=== PATIENT | male | born 1945 | race Caucasian/White ===

== ENCOUNTER → 2019-08-26 | Outpatient (CLI) | payer OTHER ==
[~2019-08-26] MED LIST: ABILIFY 5 MG TAB5 M1 PO; ASA81BEC; CARVEDILOL25 MG PO; COZAAR100 MG PO; FOSAMAX 70 MG T70 MG PO; LIPITOR40 MG PO; MINIPRESS2 MG PO; NITROSTAT0.4 M1 SUBLING; SERTRALINE HCL100 MG PO; TERAZOSIN HCL5 MG PO; TRIAMTERENE/HCT1 CA1 PO; VENTOLIN HFA INH8 GM
[2019-08-26 10:59] VITALS: BP 127/68
[2019-08-26 11:45] VITALS: BP 128/59
--- NOTE | 2019-08-26 12:11 | NUR ---
IN FOR THERAPEUTIC PHLEBOTOMY FOR HEMACHROMATOSIS. HGB 15.7. ADMISSION HISTORY AND ASSESSMENT COMPLETED. PATIENT VERY PLEASANT. THERAPEUTIC PHLEBOTOMY COMPLETED AFTER 2 STICKS. TOLERATED WELL. PATIENT REPORTED HE ATE A GOOD BREAKFAST. DRANK SOME APPLE JUICE AND WATER WHILE HERE. OBSERVED FOR 20 MINUTES AND THEN DISMISSED IN GOOD CONDITION. SCHEDULED TO RETURN IN 3 MONTHS.
== END ==
LOC: OPONC 08:14
DX: E83.119 Hemochromatosis, unspecified (principal); I25.10 Atherosclerotic heart disease of native coronary artery without angina pectoris
CPT/HCPCS: 95100

== ENCOUNTER → 2019-11-18 | Outpatient (CLI) | payer OTHER ==
[2019-11-18 10:30] VITALS: BP 122/57
[2019-11-18 10:57] LABS: HEMATOCRIT 44.5 % (42.0-52.0); HEMOGLOBIN 15.6 gm/dL (14.0-18.0); MCH 34.3 pg (26.0-34.0); MCHC 35.1 g/dL (28.0-37.0); MCV 97.5 fL (80.0-100.0); RBC 4.56 mil/uL (4.50-6.00); RDW 12.6 % (10.5-14.5)
[2019-11-18 12:25] VITALS: BP 127/58
--- NOTE | 2019-11-18 15:42 | NUR ---
VERY PLEASANT PATIENT IN FOR THERAPEUTIC PHLEBOTOMY. STATED FEELING WELL. CBC DRAWN. HGB 15.6, HCT 44.5. THERAPEUTIC PHLEBOTOMY DONE. PATIENT IS A VERY HARD STICK SO IV TEAM PLACED NEEDLE AFTER 2 ATTEMPTS BY THIS RN. PATIENT TOLERATED WELL. DRANK SOME ORANGE JUICE AND OBSERVED FOR 15 MINUTES. POST BP WNL. DISMISSED IN STABLE CONDITION.
== END ==
LOC: OPONC 08:41
PROVIDERS: ATTEND Family Medicine
DX: E83.119 Hemochromatosis, unspecified (principal)
CPT/HCPCS: 95100

== ENCOUNTER → 2019-12-30 | Outpatient (CLI) | payer OTHER ==
[2019-12-30 10:00] VITALS: BP 124/58
[2019-12-30 10:27] LABS: HEMATOCRIT 42.6 % (42.0-52.0); HEMOGLOBIN 14.5 gm/dL (14.0-18.0); MCH 32.8 pg (26.0-34.0); MCV 96.3 fL (80.0-100.0); RBC 4.43 mil/uL (4.50-6.00); RDW 12.1 % (10.5-14.5); WBC 7.6 thou/uL (4.0-11.0)
[2019-12-30 10:46] LABS: % SATURATION 35 % (20-39); IRON 83 ug/dL (65-175); TIBC 239 ug/dL (250-450)
[2019-12-30 11:35] VITALS: BP 115/50
--- NOTE | 2019-12-30 15:35 | NUR ---
IN FOR Q6WEEK THERAPEUTIC PHLEBOTOMY FOR HEMACHROMATOSIS. LABS DRAWN. HGB 14.5, FERRITIN 114. THERAPEUTIC PHLEBOTOMY DONE. REMOVED 1 UNIT. IV TEAM PLACED NEEDLE PATIENT HAS POOR PERIPHERAL VEINS. TOLERATED WELL. DRANK 8 OZ ORANGE JUICE. OBSERVED FOR 20 MINUTES.POST VITAL SIGNS GOOD. SCHEDULED TO RETURN FOR LAB DRAW AND RETURN IF NEEDS PHLEBOTOMY. DISMISSED IN GOOD CONDITION.
== END ==
LOC: OPONC 08:54
PROVIDERS: ATTEND Family Medicine
DX: E83.119 Hemochromatosis, unspecified (principal)
CPT/HCPCS: 95100

== ENCOUNTER → 2020-02-10 | Outpatient (CLI) | payer OTHER ==
[2020-02-10 09:17] LABS: HEMATOCRIT 41.4 % (42.0-52.0); HEMOGLOBIN 14.4 gm/dL (14.0-18.0); MCH 33.5 pg (26.0-34.0); MCHC 34.8 g/dL (28.0-37.0); MCV 96.3 fL (80.0-100.0); RBC 4.3 mil/uL (4.50-6.00); RDW 12.9 % (10.5-14.5); WBC 8.4 thou/uL (4.0-11.0)
[2020-02-10 13:30] LABS: % SATURATION 43 % (20-39); IRON 105 ug/dL (65-175); TIBC 247 ug/dL (250-450)
== END ==
LOC: OPONC 09:03
PROVIDERS: ATTEND Family Medicine
DX: E83.119 Hemochromatosis, unspecified (principal)

== ENCOUNTER → 2020-02-11 | Outpatient (CLI) | payer OTHER ==
[2020-02-11 09:00] VITALS: BP 119/56
[2020-02-11 09:30] VITALS: BP 113/48
--- NOTE | 2020-02-11 11:39 | NUR ---
IN FOR Q6 WEEK THERAPEUTIC PHLEBOTOMY. STATED FEELING WELL. SCALE CALIBRATED BY [employer]. IV TEAM PLACED A 14 G NEEDLE CONNECTED TO A PHLEBOTOMY BAG IN [facility]. REMOVED APPROXIMATELY 350 ML OR 10 OUNCES OF BLOOD. LINE CLOTTED OFF AND COULD ONLY GET 10 OUNCES. PATIENT TOLERATED WELL. PATIENT DRANK A LEMON [place] SODA AND OBSERVED FOR 20 MINUTES. POST BP STABLE. TO RETURN IN MARCH FOR NEXT TREATMENT. DISMISSED IN STABLE CONDITION.
== END ==
LOC: OPONC 08:56
PROVIDERS: ATTEND Family Medicine
DX: E83.119 Hemochromatosis, unspecified (principal)
CPT/HCPCS: 95100

== ENCOUNTER → 2020-04-05 | Outpatient (CLI) | payer OTHER ==
[2020-04-05 10:00] LABS: HEMATOCRIT 43.6 % (42.0-52.0); HEMOGLOBIN 14.9 gm/dL (14.0-18.0); MCH 33.2 pg (26.0-34.0); MCHC 34.1 g/dL (28.0-37.0); MCV 97.3 fL (80.0-100.0); RBC 4.48 mil/uL (4.50-6.00); RDW 12.9 % (10.5-14.5); WBC 7.1 thou/uL (4.0-11.0)
[2020-04-05 10:08] LABS: % SATURATION 45 % (20-39); IRON 115 ug/dL (65-175); TIBC 258 ug/dL (250-450)
== END ==
LOC: OPONC 08:52
PROVIDERS: ATTEND Family Medicine
DX: E83.119 Hemochromatosis, unspecified (principal)

== ENCOUNTER → 2020-04-06 | Outpatient (CLI) | payer OTHER ==
[2020-04-06 09:03] VITALS: BP 119/72
[2020-04-06 09:20] VITALS: BP 124/58
--- NOTE | 2020-04-06 10:41 | NUR ---
IN FOR Q6WEEK THERAPEUTIC PHLEBOTOMY FOR HEMOCHROMATOSIS. STATED FEELING WELL. DENIED NAUSEA, FEVER/CHILLS, INCREASED SOB (HAS CHRONIC ASTHMA SYMPTOMS). IV TEAM PLACED THERAPEUTIC PHLEBOTOMY NEEDLE IN LAC USING ULTRASOUND. REMOVED 500 ML BLOOD PER MEASUREMENT ON BAG. TOLERATED WELL. DRANK SOME SODA AND OBSERVED FOR 15 MINUTES. POST BP GOOD. SCHEDULED TO RETURN IN 6 WEEKS. DISMISSED IN GOOD CONDITION.
== END ==
LOC: OPONC 09:45
PROVIDERS: ATTEND Family Medicine
DX: E83.119 Hemochromatosis, unspecified (principal)
CPT/HCPCS: 95100

== ENCOUNTER → 2020-05-17 | Outpatient (CLI) | payer OTHER ==
[2020-05-17 08:45] VITALS: BP 130/55
[2020-05-17 09:15] LABS: HEMATOCRIT 46.4 % (42.0-52.0); HEMOGLOBIN 15.7 gm/dL (14.0-18.0); MCH 32.8 pg (26.0-34.0); MCHC 33.9 g/dL (28.0-37.0); MCV 96.7 fL (80.0-100.0); RBC 4.8 mil/uL (4.50-6.00); RDW 12.5 % (10.5-14.5); WBC 10.4 thou/uL (4.0-11.0)
[2020-05-17 09:25] LABS: % SATURATION 45 % (20-39); IRON 111 ug/dL (65-175); TIBC 248 ug/dL (250-450)
[2020-05-17 09:30] VITALS: BP 118/59
--- NOTE | 2020-05-17 10:00 | NUR ---
PT HERE FOR Q6WK THERAPEUTIC PHLEBOTOMY FOR HEMACHROMATOSIS. PRE-PHLEBOTOMY LABS DRAWN. PT MET CRITERIA FOR PHLEBOTOMY WITH HGB 15.7 AND FERRITIN 123. WITH UNLTRASOUND, VASCULAR ACCESS NURSE, ANGY, ACCESSED PT'S VEIN IN RT AC WITHOUT DIFFICULTY AND REMAINED WITH PATIENT THROUGHOUT. ONE FULL UNIT OBTAINED, 520GM IN WEIGHT. CALIBRATED, ZEROED SCALE USED TO DETERMINE WEIGHT. PT TOLERATED WELL, NO DIZZINESS, NAUSEA OR OTHER COMPLAINTS. VSS. HEMOSTASIS OBTAINED. PT GIVEN SODA TO DRINK POST PROCEDURE. DISMISSED 30 MIN POST IN STABLE CONDITION. REMINDED TO DRINK PLENTY OF FLUIDS FOR NEXT 24 HOURS. SCHEDULED TO RETURN IN 6 WEEKS.
== END ==
LOC: OPONC 08:35
PROVIDERS: ATTEND Family Medicine
DX: E83.119 Hemochromatosis, unspecified (principal)
CPT/HCPCS: 95100

== ENCOUNTER → 2020-06-29 | Outpatient (CLI) | payer OTHER ==
[2020-06-29 10:03] LABS: HEMATOCRIT 43.6 % (42.0-52.0); HEMOGLOBIN 14.8 gm/dL (14.0-18.0); MCH 32.7 pg (26.0-34.0); MCHC 33.9 g/dL (28.0-37.0); MCV 96.6 fL (80.0-100.0); RBC 4.51 mil/uL (4.50-6.00); RDW 12.2 % (10.5-14.5); WBC 9.4 thou/uL (4.0-11.0)
[2020-06-29 10:15] LABS: % SATURATION 30 % (20-39); IRON 76 ug/dL (65-175); TIBC 250 ug/dL (250-450)
[2020-06-29 10:24] VITALS: BP 137/60
[2020-06-29 11:35] VITALS: BP 136/59
--- NOTE | 2020-06-29 12:47 | NUR ---
IN FOR Q6WEEK THERAPEUTIC PHLEBOTOMY FOR HEMOCHROMATOSIS. PATIENT STATED FEELING WELL. HGB 14.8, FERRITIN 84. CALLED DR. SMITH TO SEE IF PHLEBOTOMY NEEDED TO BE DONE. STATED GO AHEAD ORDERED AND DO THERAPEUTIC PHLEBOTOMY. IV TEAM ANGY PLACED NEEDLE IN LAC AND 525 GM/1 UNIT BLOOD REMOVED WITHOUT DIFFICULTY. PATIENT DRANK SOME [place] AND OBSERVED FOR 20 MINUTES. POST BLOOD PRESSURE GOOD. PATIENT DENIED DIZZINESS AND WEAKNESS. DISMISSED IN GOOD CONDITION. SCHEDULED TO RETURN ON AUGUST 10.
== END ==
LOC: OPONC 06-28 10:17
PROVIDERS: ATTEND Family Medicine
DX: E83.119 Hemochromatosis, unspecified (principal)
CPT/HCPCS: 95100

== ENCOUNTER → 2020-08-10 | Outpatient (CLI) | payer OTHER ==
[~2020-08-10] MED LIST changes: +ABILIFY 5 MG TAB5 MG PO; +ASA81BEC PO; +COZAAR 25 MG TA25 M2 PO; +VENTOLIN HFA INH8 GM INH
[2020-08-10 08:44] LABS: HEMOGLOBIN 14.9 gm/dL (14.0-18.0); MCH 33.1 pg (26.0-34.0); MCHC 34.7 g/dL (28.0-37.0); MCV 95.4 fL (80.0-100.0); RBC 4.5 mil/uL (4.50-6.00); RDW 12.6 % (10.5-14.5); WBC 8.1 thou/uL (4.0-11.0)
[2020-08-10 08:45] VITALS: BP 118/50
[2020-08-10 09:00] LABS: % SATURATION 26 % (20-39); IRON 75 ug/dL (65-175); TIBC 290 ug/dL (250-450)
--- NOTE | 2020-08-10 11:26 | NUR ---
IN FOR Q6WEEK LAB AND THERAPEUTIC PHLEBOTOMY. PER STANDING ORDER TO DO THERAPEUTIC PHLEBOTOMY IF HGB>11 AND FERRITIN>100. HGB 14.6/FERRITIN 76. CALLED DR. SMITH THESE LAB RESULTS. RECEIVED ORDER TO HOLD THERAPEUTIC PHLEBOTOMY TODAY AND HAVE PATIENT COME BACK IN 6 WEEKS PER STANDING ORDER. SCHEDULED TO RETURN SEPTEMBER 21. DISMISSED IN STABLE CONDITION.
== END ==
LOC: OPONC 09:01
PROVIDERS: ATTEND Family Medicine
DX: E83.119 Hemochromatosis, unspecified (principal)
CPT/HCPCS: 91018

== ENCOUNTER → 2020-09-21 | Outpatient (CLI) | payer OTHER ==
[2020-09-21 09:25] VITALS: BP 133/53
[2020-09-21 09:26] LABS: HEMATOCRIT 42.8 % (42.0-52.0); HEMOGLOBIN 14.7 gm/dL (14.0-18.0); MCH 32.7 pg (26.0-34.0); MCHC 34.3 g/dL (28.0-37.0); MCV 95.1 fL (80.0-100.0); RBC 4.49 mil/uL (4.50-6.00); RDW 12.6 % (10.5-14.5); WBC 8.6 thou/uL (4.0-11.0)
[2020-09-21 10:09] LABS: % SATURATION 46 % (20-39); IRON 97 ug/dL (65-175); TIBC 213 ug/dL (250-450)
[2020-09-21 10:45] VITALS: BP 128/59
--- NOTE | 2020-09-21 10:55 | NUR ---
HERE FOR Q6W THERAPEUTIC PHLEBOTOMY. DID NOT NEED THIS DRAWN LAST VISIT D/T LAB PARAMETERS. MET PARAMETERS TODAY WITH HGB 14.7, HCT 42.8 AND FERRITIN 127. VASCULAR ACCESS TEAM ASSISTED WITH VENIPUNCTURE USING DOPPLER. ACCESSED LAC WITHOUT DIFFICULTY. ONE FULL UNIT OBTAINED WITH GOOD FLOW. PT TOLERATED WELL. GOOD HEMOSTASIS OBTAINED, DRANK A COKE AFTER. ENCOURAGED TO DRINK PLENTY OF FLUIDS OVER NEXT 24-48 HOURS. DISMISSED IN STABLE CONDITION. SCHEDULED TO RETURN IN 6 WEEKS.
== END ==
LOC: OPONC 10:17
PROVIDERS: ATTEND Family Medicine
DX: E83.119 Hemochromatosis, unspecified (principal)
CPT/HCPCS: 95100

== ENCOUNTER → 2020-11-30 | Outpatient (CLI) | payer OTHER ==
[2020-11-30 13:00] VITALS: BP 137/53
[2020-11-30 13:26] LABS: HEMATOCRIT 41.5 % (42.0-52.0); HEMOGLOBIN 14.7 gm/dL (14.0-18.0); MCH 33.5 pg (26.0-34.0); MCHC 35.4 g/dL (28.0-37.0); MCV 94.8 fL (80.0-100.0); RBC 4.38 mil/uL (4.50-6.00); WBC 8.4 thou/uL (4.0-11.0)
[2020-11-30 13:43] LABS: IRON 106 ug/dL (65-175)
[2020-11-30 13:45] LABS: % SATURATION 43 % (20-39); TIBC 244 ug/dL (250-450)
[2020-11-30 14:00] VITALS: BP 104/75
--- NOTE | 2020-11-30 14:25 | NUR ---
PT HERE FOR Q6 WEEK THERAPEUTIC PHLEBOTOMY. CBC, FERRITIN, AND IRON PANEL DRAWN. HGB: 14.7, HCT: 41.5, FERRITIN:137. WITHIN ORDER PARAMETERS. IV TEAM (ANGY) ACCESSED VEIN IN LEFT FOREARM USING ULTRASOUND. REMOVED 523.3 GM. PT TOLERATED TREATMENT WELL. VSS. ENCOURAGED FLUID INTAKE. PT UNDERSTANDS POST-PHLEBOTOMY CARE. LEFT UNIT IN STABLE CONDITION. SCHEDULED TO RETURN ON 01/11/21. LABS FAXED TO DR SMITH.
== END ==
LOC: OPONC 13:32
PROVIDERS: ATTEND Family Medicine
DX: E83.119 Hemochromatosis, unspecified (principal)
CPT/HCPCS: 95100

== ENCOUNTER → 2021-01-11 | Outpatient (CLI) | payer OTHER ==
[2021-01-11 10:00] VITALS: BP 132/60
[2021-01-11 10:05] LABS: HEMOGLOBIN 15.2 gm/dL (14.0-18.0); MCH 33.6 pg (26.0-34.0); MCHC 35.2 g/dL (28.0-37.0); MCV 95.3 fL (80.0-100.0); RBC 4.51 mil/uL (4.50-6.00); RDW 12.6 % (10.5-14.5); WBC 7.6 thou/uL (4.0-11.0)
[2021-01-11 10:16] LABS: % SATURATION 33 % (20-39); IRON 84 ug/dL (65-175); TIBC 258 ug/dL (250-450)
--- NOTE | 2021-01-11 10:49 | NUR ---
PT HERE FOR Q6 WEEK THERAPEUTIC PHLEBOTOMY. NO NEW SYMPTOMS TO REPORT. PRE-TREATMENT LABS DRAWN. HGB 15.2, HCT 43.0, FERRITIN 96. PHLEBOTOMY HELD PER ORDER PARAMETERS. LABS FAXED TO DR. SMITH. PT SCHEDULED TO RETURN ON 03/01. LEFT UNIT IN STABLE CONDITION.
== END ==
LOC: OPONC 11:59
PROVIDERS: ATTEND Family Medicine
DX: E83.119 Hemochromatosis, unspecified (principal)
CPT/HCPCS: 91018